=== PATIENT | male | born 1980 | race Caucasian/White ===

== ENCOUNTER 2017-11-13 02:19 | Inpatient (IN) | payer MEDICAID ==
[~2017-11-13] VITALS: Ht 185.4 cm; Wt 87.1 kg
[2017-11-13 03:10] LABS: BASOPHILS # (AUTO) 0.03 K/uL (0.00-0.20); BASOPHILS % (AUTO) 0.7 % (0.0-2.0); EOSINOPHILS # (AUTO) 0.32 K/uL (0.00-0.70); EOSINOPHILS % (AUTO) 7.94 % (1.0-6.0); HEMATOCRIT 49.7 % (41-53); HEMOGLOBIN 16.8 g/dL (13.5-17.5); LYMPHOCYTES # (AUTO) 1.5 K/uL (1.0-4.8); MEAN CORPUSCULAR HEMOGLOBIN 32.6 pg (26.0-34.0); MEAN CORPUSCULAR HGB CONC 33.8 G/dL (31.0-37.0); MEAN CORPUSCULAR VOLUME 97 fL (80-100); MONOCYTES # (AUTO) 0.3 K/uL (0.1-1.0); MONOCYTES % (AUTO) 8.5 % (2.0-9.0); NEUTROPHILS # (AUTO) 1.8 K/uL (1.8-7.7); NEUTROPHILS % (AUTO) 45.9 % (40.0-70.0); PLATELET COUNT (AUTO) 149 K/uL (150-450); RED BLOOD CELL COUNT(AUTO) 5.15 MIL/uL (4.50-5.90); RED CELL DISTRIBUTION WIDTH 14.1 % (11.5-14.5)
[2017-11-13 03:15] LABS: ANION GAP 8 mmol/L (8-16); CALCIUM, TOTAL 8.1 mg/dL (8.8-10.5); CARBON DIOXIDE 32 mmol/L (22-29); CHLORIDE 100 mmol/L (98-107); CREATININE 0.95 mg/dL (0.60-1.30); GLOMERULAR FILTR. RATE CALC > 60 mL/min (>60); GLUCOSE,RANDOM 92 mg/dL (70-110); POTASSIUM 4.2 mmol/L (3.5-5.1); SODIUM SERUM 140 mmol/L (136-145); UREA NITROGEN, BLOOD 7 mg/dL (7-18)
[2017-11-13 03:21] LABS: ALANINE AMINOTRANSFERASE 106 U/L (12-78); ALBUMIN 3.9 g/dL (3.4-5.0); ALKALINE PHOSPHATASE 73 U/L (46-116); ASPARTATE AMINOTRANSFERASE 236 U/L (15-37); BILIRUBIN,TOTAL 0.7 mg/dL (0.1-1.0); TOTAL PROTEIN, SERUM 8.9 g/dL (6.4-8.2)
[2017-11-13] MEDS ORDERED: SODIUM CHLORIDE 0.9% 1,000 ML IV ONE ×2 (06:00→10:45)
[2017-11-13] MEDS ORDERED: ZOLPIDEM TARTRATE 10 MG TABLET PO PRN (06:30)
[2017-11-13] MEDS ORDERED: CYANOCOBALAMIN 1,000 MCG/ML VIAL IM ONE (06:30)
[2017-11-13] MEDS ORDERED: GuaiFENesin/D-METHORPHAN [SUGAR-FREE] 200-20MG/10 ML SYRUP UDCUP PO PRN (06:30)
[2017-11-13] MEDS ORDERED: HALOPERIDOL 5 MG TABLET PO PRN (06:30)
[2017-11-13] MEDS ORDERED: HydrOXYzine PAMOATE 50 MG CAPSULE PO PRN (06:30)
[2017-11-13] MEDS ORDERED: LOPERAMIDE HCL 2 MG CAPSULE PO PRN (06:30)
[2017-11-13] MEDS: THIAMINE HCL 100 MG TABLET PO SCH (08:54)
[2017-11-13] MEDS: MULTIVITAMINS WITH MINERALS, THERAPEUTIC TABLET PO SCH (08:54)
[2017-11-13] MEDS: FOLIC ACID 1 MG TABLET PO SCH (08:54)
[2017-11-13 13:05] LABS: APPEARANCE,URINE CLEAR (CLEAR); BILIRUBIN,URINE NEGATIVE (NEGATIVE); GLUCOSE, URINE (UA) NEGATIVE (NEGATIVE); KETONES,URINE 15 mg/dL (NEGATIVE); LEUKOCYTE ESTERASE ,URINE NEGATIVE (NEGATIVE); NITRATE,URINE NEGATIVE (NEGATIVE); OCCULT BLOOD,URINE NEGATIVE (NEGATIVE); PROTEIN,URINE TRACE (NEGATIVE)
[2017-11-13 13:08] LABS: BACTERIA,URINE None Seen /HPF (None Seen); RBC,URINE None Seen /HPF (0-2); SQUAMOUS EPITHELIAL CELL,UR Few /LPF (None Seen); WBC,URINE None Seen /HPF (0-5); YEAST,URINE None Seen /HPF (None Seen)
[2017-11-13 13:41] LABS: AMPHET/METH SCREEN,URINE NEGATIVE (NEGATIVE); BARBITURATE SCREEN, URINE NEGATIVE (NEGATIVE); BENZODIAZEPINES SCREEN,URINE POSITIVE (NEGATIVE); CANNABINOID SCREEN,URINE NEGATIVE (NEGATIVE); COCAINE SCREEN,URINE NEGATIVE (NEGATIVE); METHADONE SCREEN, URINE NEGATIVE (NEGATIVE); OPIATE SCREEN,URINE NEGATIVE (NEGATIVE); PHENCYCLIDINE SCREEN,URINE NEGATIVE (NEGATIVE)
[2017-11-13 17:46] VITALS: BP 134/78
[2017-11-13 20:00] VITALS: BP 138/89
[2017-11-13] MEDS: LORazepam 2 MG TABLET PO PRN ×2 (20:41→23:36)
[2017-11-13] MEDS ORDERED: INFLUENZA VIRUS VACCINE QVS 2017-18 (3YR+)/PF 60 MCG/0.5 ML SYRINGE IM ONE (20:45)
[2017-11-13 20:51] VITALS: BP 151/94
[2017-11-13 21:30] VITALS: BP 136/95
[2017-11-13 22:16] VITALS: BP 130/92
[2017-11-13 23:10] VITALS: BP 133/78
[2017-11-14 00:05] VITALS: BP 150/96
[2017-11-14 04:05] VITALS: BP 136/85
[2017-11-14] MEDS ORDERED: ACETAMINOPHEN 325 MG TABLET PO PRN (07:00)
[2017-11-14] MEDS ORDERED: ONDANSETRON HCL 4 MG TABLET PO PRN (07:00)
[2017-11-14] MEDS ORDERED: PETROLATUM,WHITE 71 GM JELLY TP PRN (07:00)
[2017-11-14] MEDS ORDERED: BENZOCAINE/MENTHOL LOZENGE MM PRN (07:00)
[2017-11-14] MEDS ORDERED: LOPERAMIDE HCL 2 MG CAPSULE PO PRN (07:00)
[2017-11-14] MEDS ORDERED: MAG HYDROX/AL HYDROX/SIMETH ES 30 ML SUSPENSION UDCUP PO PRN (07:00)
[2017-11-14] MEDS ORDERED: LORazepam 2 MG TABLET PO PRN (07:00)
[2017-11-14] MEDS ORDERED: CloNIDine HCL 0.1 MG TABLET PO PRN (07:00)
[2017-11-14] MEDS ORDERED: IBUPROFEN 600 MG TABLET PO PRN (07:00)
[2017-11-14] MEDS ORDERED: ALBUTEROL SULFATE HFA 90 MCG/PUFF 8 GM INHALER IH PRN (07:00)
[2017-11-14] MEDS ORDERED: MAGNESIUM HYDROXIDE SUSPENSION 30 ML UDCUP PO PRN (07:00)
[2017-11-14] MEDS ORDERED: BACITRACIN 28.4 GM OINTMENT TP PRN (07:00)
[2017-11-14 08:45] LABS: CHOL/HDL RATIO 2.2 (4.2-7.3); THYROID STIMULATING HORMONE 4.74 uIU/mL (0.36-3.74)
[2017-11-14] MEDS: LORazepam 2 MG TABLET PO SCH ×3 (09:47→17:13)
[2017-11-14] MEDS: MULTIVITAMINS WITH MINERALS, THERAPEUTIC TABLET PO SCH (09:47)
[2017-11-14] MEDS: THIAMINE HCL 100 MG TABLET PO SCH ×2 (09:47→17:12)
[2017-11-14] MEDS: FOLIC ACID 1 MG TABLET PO SCH (09:47)
[2017-11-14] MEDS: BACITRACIN 28.4 GM OINTMENT TP SCH ×2 (09:48→17:13)
[2017-11-14 09:51] VITALS: BP 114/76
[2017-11-14 10:04] VITALS: BP 141/76
[2017-11-14 12:34] VITALS: BP 141/76
[2017-11-14 16:00] VITALS: BP 135/85
[2017-11-14] MEDS ORDERED: MIRT15 PO (18:01)
[2017-11-14] MEDS ORDERED: MIRTAZAPINE 15 MG TABLET PO SCH (21:00)
[2017-11-16] MEDS ORDERED: LORazepam 1 MG TABLET PO PRN (07:00)
[2017-11-16] MEDS ORDERED: LORazepam 1 MG TABLET PO SCH (09:00)
[2017-11-17] MEDS ORDERED: LORazepam 1 MG TABLET PO PRN (07:00)
== END 2017-11-14 19:00 | disposition home or self-care (01) | DRG 754 ==
LOC: EMS 02:21 → AHU 16:49 → B3A 19:44
PROVIDERS: ADMIT Psychiatry & Neurology Psychiatry; ATTEND Psychiatry & Neurology Psychiatry
DX: F32.9 Major depressive disorder, single episode, unspecified (principal); R45.851 Suicidal ideations; E03.9 Hypothyroidism, unspecified; F12.90 Cannabis use, unspecified, uncomplicated; F10.229 Alcohol dependence with intoxication, unspecified; G47.00 Insomnia, unspecified; F43.10 Post-traumatic stress disorder, unspecified; F23 Brief psychotic disorder; F41.9 Anxiety disorder, unspecified; F17.200 Nicotine dependence, unspecified, uncomplicated
CPT/HCPCS: 80074; 84443; 87081; 90471; 96360; 96372; 99285; G0480; J3420

== ENCOUNTER 2018-04-11 12:40 | Emergency (ER) | payer MEDICAID, SELFPAY ==
[~2018-04-11] VITALS: Ht 185.4 cm; Wt 90.9 kg
[~2018-04-11 12:40] MED LIST: MIRT15 PO
[2018-04-11] MEDS ORDERED: KETOROLAC TROMETHAMINE 10 MG TABLET PO ONE (15:15)
[2018-04-11 17:59] VITALS: BP 119/78
== END 2018-04-11 18:40 | disposition home or self-care (01) ==
LOC: EMS 12:41
DX: S80.11XA Contusion of right lower leg, initial encounter (principal); S46.001A Unspecified injury of muscle(s) and tendon(s) of the rotator cuff of right shoulder, initial encounter; F41.9 Anxiety disorder, unspecified; F32.9 Major depressive disorder, single episode, unspecified; F10.20 Alcohol dependence, uncomplicated; F12.90 Cannabis use, unspecified, uncomplicated; Z59.0 Homelessness; Y04.2XXA Assault by strike against or bumped into by another person, initial encounter; Y93.89 Activity, other specified; Y92.89 Other specified places as the place of occurrence of the external cause; Y99.8 Other external cause status
CPT/HCPCS: 99283